=== PATIENT | male | born 1975 | race Caucasian/White ===

== ENCOUNTER 2019-02-27 11:17 | Emergency (ER) | payer OTHER, BC ==
[2019-02-27 11:59] VITALS: BP 132/94; PULSE 92; TEMP 98.8; BMI 21.8
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
[2019-02-27] MEDS ORDERED: IBUPROFEN 600 MG TABLET (FP) PO ONE ×2 (12:15→12:31)
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
== END 2019-02-27 13:45 | disposition home or self-care (01) ==
LOC: FER 11:17
DX: R25.2 Cramp and spasm (principal); V43.52XA Car driver injured in collision with other type car in traffic accident, initial encounter; Y93.89 Activity, other specified; Y92.410 Unspecified street and highway as the place of occurrence of the external cause
CPT/HCPCS: 99282-25